=== PATIENT | female | born 1945 | race African-American/Black ===

== ENCOUNTER 2017-01-02 00:29 | Inpatient (IN) | payer MEDICARE, OTHER ==
[~2017-01-02] VITALS: Ht 167.6 cm; Wt 63.5 kg
[2017-01-02] VITALS (7 sets, daily range): BP systolic 103–145; BP diastolic 72–91
--- NOTE | 2017-01-02 00:28 | Emergency Room Report ---
History of Present Illness General Source: Patient, EMS Present Illness HPI Patient 71-year-old female brought in by EMS after increased abdominal pain. Patient had associated vomiting. Patient prior history of chronic back pain. Patient had previously been seen at this emergency department after having similar symptoms were. Patient stated that she been drinking beer earlier in the day. She had increased abdominal pain subsequently. She reports having some chest pain. She reports having some associated shortness of breathPatient stated that she had vomited one time. She denied prior medical history Allergies: Coded Allergies: No Known Allergies (Unverified , 05/25/14) Patient History Past Medical History: see triage record Reviewed Nursing Documentation: PMH: Agreed, PSxH: Agreed Review of Systems All Other Systems: negative except mentioned in HPI Physical Exam Sp02 EP Interpretation: reviewed, normal General Appearance: normal inspection, alert, GCS 15, mild distress Head: atraumatic ENT: normal ENT inspection, hearing grossly normal, normal voice Neck: normal inspection, full range of motion, supple, no bony tend Respiratory: normal inspection, lungs clear, normal breath sounds, no respiratory distress, no retraction, no wheezing Cardiovascular #1: regular rate, rhythm, no edema Gastrointestinal: normal inspection, soft, no guarding, no hernia, tenderness - left upper quadrant tenderness Genitourinary: no CVA tenderness Musculoskeletal: normal inspection, back normal, normal range of motion Neurologic: normal inspection, alert, oriented x3, responsive, vehicle monitor technician III-XII nml as tested, speech normal Psychiatric: normal inspection, judgement/insight normal, mood/affect normal Skin: normal inspection, normal color, no rash Medical Decision Making Diagnostic Impression: Primary Impression: Abdominal pain Additional Impressions: Pneumonia Substance abuse Tachycardia ER Course Patient presented for abdominal pain. Differential diagnoses included ischemic bowel, appendicitis, perforated viscus, abdominal aortic aneurysm, inferior myocardial infarction, viral gastroenteritis Because of complexity of patient's case laboratory testing and imaging studies were ordered.EKG interpreted by me showed sinus tachycardia with a rate of 108. There were no acute ST or T wave changes noted. Laboratory testing was notable for elevated white blood count. A CT imaging of the abdomen pelvis was ordered due to patient's severe pain and nature symptoms. A CT of abdomen and pelvis read by radiologist showed diverticulosis without diverticulitis. There is a hernia present. There is no to bowel obstruction. Left lower lobe consolidation was noted. Patient was noted to have pain and was initially given IV morphine. The patient was also given azithromycin and as well as Rocephin. Chest x-ray one view interpreted by me showed left lung infiltrate and possible effusion. the patient will be admitted for further IV antibiotics. Patient was noted to have urine tox screen positive for cocaine.Dr. Aakash Ramirez was contacted for inpatient management. Labs Test 01/02/17 00:40 01/02/17 00:45 White Blood Count 17.7 K/UL (4.8-10.8) Red Blood Count 4.46 M/UL (4.20-5.40) Hemoglobin 15.1 G/DL (12.0-16.0) Hematocrit 44.4 % (37.0-47.0) Mean Corpuscular Volume 100 FL (80-99) Mean Corpuscular Hemoglobin 33.8 PG (27.0-31.0) Mean Corpuscular Hemoglobin Concent 34.0 G/DL (32.0-36.0) Red Cell Distribution Width 11.4 % (11.6-14.8) Platelet Count 286 K/UL (150-450) Mean Platelet Volume 5.9 FL (6.5-10.1) Neutrophils (%) (Auto) 79.7 % (45.0-75.0) Lymphocytes (%) (Auto) 10.4 % (20.0-45.0) Monocytes (%) (Auto) 9.1 % (1.0-10.0) Eosinophils (%) (Auto) 0.0 % (0.0-3.0) Basophils (%) (Auto) 0.8 % (0.0-2.0) Status: unchanged Disposition: ADMITTED INPATIENT Condition: Alex Adorno Jan 02, 2017 00:28
[~2017-01-02 00:29] MED LIST: NKM; NORCO 10/3251 EA ORAL; NORCO 5-325 TA1 EACH ORAL; SOMA350 MG PO
[2017-01-02] MEDS ORDERED: Mylanta II UD 30ml ORAL ONE (00:45)
[2017-01-02] MEDS ORDERED: Lidocaine 2% Visc 15ml soln ORAL ONE (00:45)
[2017-01-02] MEDS ORDERED: Morphine Sulfate 4mg/ml Inj IVP ONE ×2 (00:45→03:15)
[2017-01-02] MEDS ORDERED: Metoclopramide 10mg/2ml Inj IVP ONE (00:45)
[2017-01-02] MEDS ORDERED: Dicyclomine HCl 10mg/5ml oral soln ORAL ONE (00:45)
[2017-01-02] MEDS ORDERED: Tubing IV Cassette IV ONE (00:46)
[2017-01-02 01:00] LABS: BASOPHILS % (AUTO) 0.8 % (0.0-2.0); LYMPHOCYTES % (AUTO) 10.4 % (20.0-45.0); MEAN CORPUSCULAR HEMOGLOBIN 33.8 PG (27.0-31.0); MEAN CORPUSCULAR VOLUME 100 FL (80-99); MEAN PLATELET VOLUME 5.9 FL (6.5-10.1); MONOCYTES % (AUTO) 9.1 % (1.0-10.0); NEUTROPHILS % (AUTO) 79.7 % (45.0-75.0); PLATELET COUNT 286 K/UL (150-450); RED BLOOD COUNT 4.46 M/UL (4.20-5.40); RED CELL DISTRIBUTION WIDTH 11.4 % (11.6-14.8); WHITE BLOOD COUNT 17.7 K/UL (4.8-10.8)
[2017-01-02 01:10] LABS: PROTHROMBIN TIME 10.4 SEC (9.30-11.50)
[2017-01-02] MEDS ORDERED: NKM (01:33)
[2017-01-02 01:52] LABS: ALBUMIN/GLOBULIN RATIO 1.1 (1.0-2.7); CALCIUM 9.5 mg/dL (8.6-10.2); CREATININE 1.4 mg/dL (0.5-0.9); GLOMERULAR FILTRATION RATE 45.1 mL/min (>60); POTASSIUM 3.7 mEQ/L (3.4-4.9); TOTAL PROTEIN 8.4 g/dL (6.6-8.7)
[2017-01-02 01:55] LABS: TROPONIN I < 0.30 ng/mL (<=0.30)
[2017-01-02] MEDS ORDERED: cefTRIAXone 1 GM in NS 55 ML IVPB ONE (03:15)
[2017-01-02] MEDS ORDERED: Azithromycin 500 MG in D5W 275 ML IVPB ONE (03:45)
[2017-01-02] MEDS ORDERED: Azithromycin 500mg Inj IV ONE (04:09)
[2017-01-02] MEDS ORDERED: LORazepam Inj 2mg/ml 1ml IV ONE (04:15)
[2017-01-02] MEDS ORDERED: Zolpidem 5mg tab ORAL PRN (07:15)
[2017-01-02] MEDS ORDERED: Vancomycin 1250mg/D5W 250ml IVPB ONE (08:30)
[2017-01-02 08:50] LABS: BASOPHILS % (AUTO) 0.5 % (0.0-2.0); LYMPHOCYTES % (AUTO) 7.5 % (20.0-45.0); MEAN CORPUSCULAR HEMOGLOBIN 33.6 PG (27.0-31.0); MEAN CORPUSCULAR HGB CONC 33.3 G/DL (32.0-36.0); MEAN CORPUSCULAR VOLUME 101 FL (80-99); MEAN PLATELET VOLUME 6.2 FL (6.5-10.1); MONOCYTES % (AUTO) 9.9 % (1.0-10.0); PLATELET COUNT 266 K/UL (150-450); RED BLOOD COUNT 3.95 M/UL (4.20-5.40); RED CELL DISTRIBUTION WIDTH 11.5 % (11.6-14.8); WHITE BLOOD COUNT 15.2 K/UL (4.8-10.8)
[2017-01-02] MEDS ORDERED: Tubing IV Secondary IV ONE (08:57)
[2017-01-02] MEDS ORDERED: NS 275ml ONE (08:57)
[2017-01-02] MEDS ORDERED: Norco 10mg/325mg tab ORAL PRN (09:00)
[2017-01-02 09:08] LABS: CALCIUM 9.4 mg/dL (8.6-10.2); CREATININE 1.2 mg/dL (0.5-0.9); GLOMERULAR FILTRATION RATE 53.8 mL/min (>60); POTASSIUM 4.3 mEQ/L (3.4-4.9)
[2017-01-02] MEDS: Heparin 5000 units/ml inj SUBQ SCH ×2 (09:28→18:54)
[2017-01-02] MEDS: DuoNeb 0.5-3(2.5)mg/3ml neb HHN SCH ×3 (10:46→19:59)
--- NOTE | 2017-01-02 11:33 | Diagnostic Imaging Report ---
Indication: ABD PAIN Technique: CT scan of the abdomen and pelvis was performed from the diaphragms to the symphysis pubis with intravenous contrast material only per specific request of the ordering physician.. 5 mm sections were generated. Axial, coronal, and sagittal images are presented. Dose: Total Dose Length Product - DLP [address] Dose Index - CTDIvol(s) 25.90 mGy. Comparison: None Findings: Lack of oral contrast and her limits evaluation. Airspace disease is noted in both lung bases. The liver is diffusely low density. No focal abnormalities are noted in the liver. The gallbladder is unremarkable. The spleen is normal. The pancreas is unremarkable. Air-fluid levels are noted in the small bowel but these are normal caliber. The appendix is normal. The uterus is unremarkable. The bladder is normal. Few diverticula are noted in the sigmoid colon. Adrenal glands are normal. There is a tiny low-density lesion in the lower pole left kidney consistent with is less than 1 cm cyst. The kidneys are otherwise unremarkable. Retroperitoneum is free of adenopathy. Aorta is unremarkable. Inferior vena cava is relatively collapsed. There is a tiny fat-containing umbilical hernia. Impression: Normal appendix. Fatty liver. Bilateral posterior airspace disease in the lungs. This is consistent with pneumonia and/or atelectasis. Air-fluid levels in the small bowel, nonspecific. Loops are not dilated. Enteritis is a possibility and should be correlated clinically. Tiny fat-containing umbilical hernia. The above report is concordant with preliminary reading by [employer] . The CT scanner at [facility] is accredited by the [employer] and the scans are performed using protocols designed to limit radiation exposure to as low as reasonably achievable to attain images of sufficient resolution adequate for diagnostic evaluation.
[2017-01-02] MEDS ORDERED: Morphine Sulfate 2mg/ml Inj IVP PRN (15:00)
[2017-01-02] MEDS ORDERED: Morphine Sulfate 4mg/ml Inj IVP PRN (15:00)
[2017-01-02] MEDS: Morphine Sulfate 10mg/ml Inj IVP PRN ×3 (15:20→22:43)
[2017-01-02] MEDS: cefTRIAXone 1gm/D5W 55ml IVPB SCH ×2 (22:43)
[2017-01-03] MEDS: DuoNeb 0.5-3(2.5)mg/3ml neb HHN SCH ×7 (00:09→23:42)
[2017-01-03 00:31] VITALS: BP 122/82
[2017-01-03] MEDS ORDERED: HydrALAZINE 10mg Tab ORAL PRN (02:00)
--- NOTE | 2017-01-03 03:45 | Consultation ---
DATE OF CONSULTATION: 01/03/2017 CARDIOLOGY CONSULTATION REQUESTING PHYSICIAN: Aakash Ramirez M.D. REASON FOR CONSULTATION: Bradycardia and uncontrolled blood pressure in the setting of abdominal pain. HISTORY OF PRESENT ILLNESS: This is a 71-year-old female who presented to the emergency room complaining of abdominal pain. Diagnostic workup in the emergency room revealed pneumonia by CAT scan evaluation. The patient was noted to have an elevated blood pressure on presentation of 170/100. Further upon admission to the cardiac observation unit, she had heart rates in the 40s. I have been asked to assist with further cardiovascular care. The patient has not complained of nausea, vomiting, dizziness, loss of consciousness, chest pain, or shortness of breath. PAST MEDICAL HISTORY: Includes hypertension, degenerative disk disease, and sciatica. FAMILY HISTORY: Noncontributory. SOCIAL HISTORY: She denies smoking or alcohol use at this time. She lives with her daughter. She is retired. ALLERGIES: None known. REVIEW OF SYSTEMS: No fevers or chills. No cough. No leg swelling. No history of seizures. No history of myocardial infarction. No history of irregular heartbeat. No history of kidney disease. No history of melena, bright red blood per rectum, or change in bowel habits. She does have abdominal pain. She has a history of diverticulosis and hernia. PHYSICAL EXAMINATION: VITAL SIGNS: Blood pressure in the emergency room was 170/70, heart rate 65, and respiratory rate 18. NECK: Supple. LUNGS: Clear. CARDIAC: Regular. Normal S1 and S2. ABDOMEN: Soft. There is no focal tenderness, guarding, or rebound. EXTREMITIES: Without edema. LABORATORY DATA: Urine toxicology screen is positive for cocaine. White count 17.7 and hemoglobin 15.1. Sodium is 136, potassium 3.7, bicarbonate 21, BUN 12, and creatinine 1.4. Troponin negative. Albumin is 4.4. IMPRESSION: 1. Hypertensive urgency. 2. Bradyarrhythmia likely precipitated by underlying sinus node disease exacerbated by increased vagal tone due to abdominal pain. 3. Pneumonia. 4. Cocaine intoxication and abuse likely exacerbating blood pressure control. 5. Acute tubular necrosis with acute on chronic kidney injury. 6. Abdominal pain possibly due to ischemic changes associated with cocaine use. PLAN: 1. Cardiac monitoring. 2. Hydration. 3. Anti-platelet therapy. 4. Titration of antihypertensives. 5. Avoid calcium and beta blockers. 6. Counseling regarding substance abuse. 7. The patient was made aware of the increased risk of sudden cardiac with use of cocaine especially in the setting of atherosclerosis and hypertension. Israel Quijano M.D. DR: ROM JOB#: [id number] CC:
[2017-01-03 04:46] VITALS: BP 109/74
[2017-01-03 08:00] VITALS: BP 110/74
[2017-01-03 08:24] LABS: ALANINE AMINOTRANSFERASE 11 U/L (3-33); ALBUMIN/GLOBULIN RATIO 1.1 (1.0-2.7); ANION GAP 7 (5-15); ASPARTATE AMINO TRANSFERASE 11 U/L (5-40); CALCIUM 8.7 mg/dL (8.6-10.2); CARBON DIOXIDE 30 mEQ/L (20-30); CHLORIDE 101 mEQ/L (98-107); GLOMERULAR FILTRATION RATE > 60 mL/min (>60); HEMOLYSIS 0; POTASSIUM 4.3 mEQ/L (3.4-4.9); SODIUM 138 mEQ/L (135-145); TOTAL PROTEIN 6.4 g/dL (6.6-8.7)
[2017-01-03] MEDS: Vancomycin 1gm/D5W 275ml IVPB SCH ×2 (08:36)
[2017-01-03] MEDS: Aspirin Baby 81mg ORAL SCH (08:36)
--- NOTE | 2017-01-03 08:36 | Pulmonology Progress Note ---
Assessment/Plan Assessment/Plan IMPRESSION: 1. Pneumonia, community acquired 2. abdominal pain 3. Hypertension 4. Chronic pain 5. Bradycardia PLAN care noted IV antibiotics respiratory care resume home meds supportive care monitor imaging for clearing GI followup cardiology for reduced heart rate impression, plan, and exam edited and reviewed in detail care discussed with RN Subjective Allergies: Coded Allergies: No Known Allergies (Unverified , 05/25/14) Subjective overall improved care noted and reviewed reduced abdominal pain Objective Last 24 Hour Vital Signs Date Time Temp Pulse Resp B/P (MAP) Pulse Ox O2 Delivery O2 Flow Rate FiO2 01/03/17 07:31 Nasal Cannula 2.0 28 01/03/17 07:31 72 16 99 Nasal Cannula 2.0 28 01/03/17 07:31 98 Nasal Cannula 2.0 28 01/03/17 07:26 69 16 96 Nasal Cannula 2.0 28 01/03/17 04:46 96.7 66 20 109/74 Room Air 01/03/17 03:39 60 01/03/17 03:30 Nasal Cannula 2.0 28 01/03/17 03:30 Nasal Cannula 2.0 28 01/03/17 00:31 96.1 63 20 122/82 Room Air 01/02/17 23:50 59 01/02/17 23:30 68 16 98 Nasal Cannula 2.0 28 01/02/17 23:30 64 16 97 Nasal Cannula 2.0 28 01/02/17 20:06 65 01/02/17 20:03 98 Nasal Cannula 2.0 28 01/02/17 20:03 Nasal Cannula 2.0 28 01/02/17 20:01 62 16 99 Nasal Cannula 2.0 28 01/02/17 20:00 96.1 72 20 145/91 95 Room Air 01/02/17 20:00 60 16 97 Nasal Cannula 2.0 28 01/02/17 19:59 60 16 Nasal Cannula 2.0 28 01/02/17 16:02 97.3 70 18 107/73 98 Nasal Cannula 2.0 01/02/17 16:00 63 01/02/17 15:09 63 16 99 Nasal Cannula 2.0 01/02/17 15:06 60 15 98 Nasal Cannula 2.0 01/02/17 12:05 97.2 70 18 105/72 97 Nasal Cannula 2.0 01/02/17 12:00 64 01/02/17 10:56 Nasal Cannula 2.0 01/02/17 10:56 70 17 97 Nasal Cannula 2.0 Objective WDWN NAD clearer breath sounds bilaterally without rhonchi or wheeze [id number] without MRG NABS no HSM; reduced tenderness no CCE nonfocal Microbiology Date/Time Source Procedure Growth Status 01/02/17 04:05 Blood Blood Culture - Preliminary NO GROWTH AFTER 24 HOURS Resulted 01/02/17 03:50 Blood Blood Culture - Preliminary NO GROWTH AFTER 24 HOURS Resulted Laboratory Tests 01/03/17 07:00: Sodium Level 138, Potassium Level 4.3, Chloride Level 101, Carbon Dioxide Level 30, Anion Gap 7, Blood Urea Nitrogen 12, Creatinine 1.0H, Estimat Glomerular Filtration Rate > 60, Glucose Level 116H, Calcium Level 8.7, Total Bilirubin 0.2 , Aspartate Amino Transf (AST/SGOT) 11, Alanine Aminotransferase (ALT/SGPT) 11, Alkaline Phosphatase 55, Troponin I [Pending], Pro-B-Type Natriuretic Peptide 104, Total Protein 6.4L, Albumin 3.4L, Globulin 3.0, Albumin/Globulin Ratio 1.1 , Thyroid Stimulating Hormone (TSH) 4.600H Current Medications Medications (Trade) Dose Ordered Sig/Ryan Route PRN Reason Start Time Stop Time Status Last Admin Dose Admin Acetaminophen (Tylenol) 650 mg Q4H PRN ORAL Prn Headache/Temp > 101 01/02/17 16:00 02/01/17 15:59 Al Hydroxide/Mg Hydroxide (Mylanta) 30 ml FOUR TIMES A DAY ORAL 01/02/17 09:00 02/01/17 08:59 01/02/17 21:31 Albuterol/ Ipratropium (DuoNeb 0.5-3(2.5)mg/3ml) 3 ml Q4HRT HHN 01/02/17 11:00 01/07/17 10:59 01/03/17 07:56 Aspirin (ASA) 81 mg DAILY ORAL 01/03/17 09:00 02/02/17 08:59 Ceftriaxone Sodium 1 gm/ Dextrose 55 ml @ 110 mls/hr Q24H IVPB 01/02/17 23:00 01/09/17 22:59 01/02/17 22:43 Dextrose (Dextrose 50%) STAT PRN IV Hypoglycemia 01/02/17 07:15 02/01/17 07:14 Heparin Sodium (Porcine) (Heparin 5000 units/ml) 5,000 units BID SUBQ 01/02/17 09:00 02/01/17 08:59 01/02/17 18:54 Hydralazine HCl (Apresoline) 10 mg Q6H PRN ORAL SBP above 150 01/03/17 02:00 02/02/17 01:59 Morphine Sulfate (Morphine Sulfate) 2 mg Q3H PRN IVP Mild Pain (Pain Scale 1-3) 01/02/17 15:00 01/09/17 14:59 Morphine Sulfate (Morphine Sulfate) 4 mg Q3H PRN IVP Moderate Pain (Pain Scale 4-6) 01/02/17 15:00 01/09/17 14:59 Morphine Sulfate (Morphine Sulfate) 6 mg Q3H PRN IVP Severe Pain (Pain Scale 7-10) 01/02/17 15:00 01/09/17 14:59 01/02/17 22:43 Ondansetron HCl (Zofran) 4 mg Q6H PRN IVP Nausea & Vomiting 01/02/17 15:00 02/01/17 14:59 Sodium Chloride 1,000 ml @ 100 mls/hr Q10H IV 01/02/17 15:00 02/01/17 14:59 01/03/17 01:09 Vancomycin HCl (Vanco rx to dose) 1 ea DAILY PRN MISC Per rx protocol 01/02/17 07:15 02/01/17 07:14 Vancomycin HCl 1 gm/Dextrose 275 ml @ 183.708 mls/hr Q24H IVPB 01/03/17 08:00 01/08/17 07:59 Zolpidem Tartrate (Ambien) 10 mg HSPRN PRN ORAL Insomnia 01/02/17 07:15 01/09/17 07:14 THERESA MENENDEZ Jan 03, 2017 08:36
[2017-01-03] MEDS: Heparin 5000 units/ml inj SUBQ SCH ×2 (08:38→17:21)
[2017-01-03 08:43] LABS: TROPONIN I < 0.30 ng/mL (<=0.30)
[2017-01-03] MEDS: Morphine Sulfate 10mg/ml Inj IVP PRN ×3 (08:51→21:09)
--- NOTE | 2017-01-03 08:55 | Diagnostic Imaging Report ---
Indication: SOB Technique: XRAY CHEST 1 V Comparison:None Findings: There is airspace disease in the left lung base with air bronchograms. Blunting of the left costophrenic angle is noted. The heart is normal in size. Right lung is clear. Patient has taken a poor inspiration. The bones are unremarkable. Impression: Left lower lobe airspace disease consistent with pneumonia or volume loss. Left pleural effusion.
[2017-01-03] MEDS ORDERED: Tubing IV Secondary IV ONE (09:05)
--- NOTE | 2017-01-03 11:59 | General Progress Note ---
Assessment/Plan Assessment/Plan GI CONSULT Dictated Assessment ATSP for LUQ vs Chest wall pain On exam, pain appears to be in (L) lower chest wall Patient participates in full contact boxing 3 times a week Will check bone scan Declines EGD and declines screening colonoscopy Thank you Veena Turpin MD Subjective Allergies: Coded Allergies: No Known Allergies (Unverified , 05/25/14) Objective Last 24 Hour Vital Signs Date Time Temp Pulse Resp B/P (MAP) Pulse Ox O2 Delivery O2 Flow Rate FiO2 01/03/17 11:01 66 16 99 Nasal Cannula 2.0 28 01/03/17 10:55 63 16 98 Nasal Cannula 2.0 28 01/03/17 08:00 72 01/03/17 08:00 98.1 77 18 110/74 100 Room Air 01/03/17 07:31 Nasal Cannula 2.0 28 01/03/17 07:31 72 16 99 Nasal Cannula 2.0 28 01/03/17 07:31 98 Nasal Cannula 2.0 28 01/03/17 07:26 69 16 96 Nasal Cannula 2.0 28 01/03/17 04:46 96.7 66 20 109/74 Room Air 01/03/17 03:39 60 01/03/17 03:30 Nasal Cannula 2.0 28 01/03/17 03:30 Nasal Cannula 2.0 28 01/03/17 00:31 96.1 63 20 122/82 Room Air 01/02/17 23:50 59 01/02/17 23:30 68 16 98 Nasal Cannula 2.0 28 01/02/17 23:30 64 16 97 Nasal Cannula 2.0 28 01/02/17 20:06 65 01/02/17 20:03 98 Nasal Cannula 2.0 28 01/02/17 20:03 Nasal Cannula 2.0 28 01/02/17 20:01 62 16 99 Nasal Cannula 2.0 28 01/02/17 20:00 96.1 72 20 145/91 95 Room Air 01/02/17 20:00 60 16 97 Nasal Cannula 2.0 28 01/02/17 19:59 60 16 Nasal Cannula 2.0 28 01/02/17 16:02 97.3 70 18 107/73 98 Nasal Cannula 2.0 01/02/17 16:00 63 01/02/17 15:09 63 16 99 Nasal Cannula 2.0 01/02/17 15:06 60 15 98 Nasal Cannula 2.0 01/02/17 12:05 97.2 70 18 105/72 97 Nasal Cannula 2.0 01/02/17 12:00 64 Laboratory Tests 01/03/17 07:00: Sodium Level 138, Potassium Level 4.3, Chloride Level 101, Carbon Dioxide Level 30, Anion Gap 7, Blood Urea Nitrogen 12, Creatinine 1.0H, Estimat Glomerular Filtration Rate > 60, Glucose Level 116H, Calcium Level 8.7, Total Bilirubin 0.2 , Aspartate Amino Transf (AST/SGOT) 11, Alanine Aminotransferase (ALT/SGPT) 11, Alkaline Phosphatase 55, Troponin I < 0.30, Pro-B-Type Natriuretic Peptide 104, Total Protein 6.4L, Albumin 3.4L, Globulin 3.0, Albumin/Globulin Ratio 1.1, Thyroid Stimulating Hormone (TSH) 4.600H Height (Feet): 5 Height (Inches): 6.00 Weight (Pounds): 140 VEENA TURPIN Jan 03, 2017 11:59
[2017-01-03 12:00] VITALS: BP 125/78
[2017-01-03 16:00] VITALS: BP 144/84
--- NOTE | 2017-01-03 16:30 | Diagnostic Imaging Report ---
Indication: PAIN Technique: IV administration of 23.8 mCi 9M technetium MDP. Flow, blood pool, and static images were obtained Comparison: Chest radiograph dated 01/02/2017 Findings: Flow images demonstrate normal activity within the heart, lungs, and soft tissues as well as within the abdominal aorta. No abnormal uptake is seen on the blood pool images. Static images demonstrate normal skeletal uptake, without a focal areas of increased or decreased uptake. Impression: Negative. No findings to suggest etiology of stated clinical history of left-sided rib pain.
--- NOTE | 2017-01-03 18:36 | Cardiology Report ---
APPROVED REPORT EKG Measurement Heart [id number] CA [id number] [id number] Sinus tachycardia Septal infarct, age undetermined Abnormal ECG
[2017-01-03 20:22] VITALS: BP 146/90
[2017-01-03] MEDS: cefTRIAXone 1gm/D5W 55ml IVPB SCH ×2 (23:25)
[2017-01-04 00:06] VITALS: BP 135/86
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
[2017-01-04] MEDS: Morphine Sulfate 10mg/ml Inj IVP PRN ×3 (03:54→21:07)
[2017-01-04 04:04] VITALS: BP 142/97
[2017-01-04] MEDS: DuoNeb 0.5-3(2.5)mg/3ml neb HHN SCH ×5 (04:29→20:22)
[2017-01-04 08:30] VITALS: BP 159/85
--- NOTE | 2017-01-04 08:33 | Pulmonology Progress Note ---
Assessment/Plan Assessment/Plan IMPRESSION: 1. Pneumonia, community acquired 2. abdominal pain 3. Hypertension 4. Chronic pain 5. Bradycardia PLAN care noted IV antibiotics- check cxr respiratory care noted home meds pain control supportive care monitor imaging for clearing GI followup appreciated cardiology for reduced heart rate PT dc planning impression, plan, and exam edited and reviewed in detail care discussed with RN Subjective Allergies: Coded Allergies: No Known Allergies (Unverified , 05/25/14) Subjective overall improved care noted and reviewed reduced abdominal pain per gi, likely rib pain Objective Last 24 Hour Vital Signs Date Time Temp Pulse Resp B/P (MAP) Pulse Ox O2 Delivery O2 Flow Rate FiO2 01/04/17 08:30 97.0 60 18 159/85 99 Nasal Cannula 2.0 01/04/17 07:34 97 Nasal Cannula 2.0 01/04/17 07:34 Nasal Cannula 2.0 01/04/17 07:33 65 18 97 Nasal Cannula 2.0 01/04/17 04:04 98.0 60 20 142/97 95 Nasal Cannula 2.0 01/04/17 03:56 60 01/04/17 03:45 60 16 98 Nasal Cannula 2.0 28 01/04/17 03:30 58 16 97 Nasal Cannula 2.0 28 01/04/17 00:06 98.1 79 20 135/86 98 Nasal Cannula 2.0 01/03/17 23:50 85 01/03/17 23:43 61 16 97 Nasal Cannula 2.0 28 01/03/17 23:30 57 16 96 Nasal Cannula 2.0 28 01/03/17 20:22 97.0 62 20 146/90 94 Nasal Cannula 2.0 01/03/17 19:55 64 01/03/17 19:30 61 16 97 Nasal Cannula 2.0 28 01/03/17 19:30 96 Nasal Cannula 2.0 28 01/03/17 19:30 64 16 98 Nasal Cannula 2.0 28 01/03/17 19:30 Nasal Cannula 2.0 28 01/03/17 16:00 97.2 70 18 144/84 93 Nasal Cannula 2.0 01/03/17 16:00 68 01/03/17 15:05 62 16 99 Nasal Cannula 2.0 28 01/03/17 15:00 60 16 98 Nasal Cannula 2.0 28 01/03/17 12:00 97.2 73 20 125/78 97 Nasal Cannula 2.0 01/03/17 12:00 68 01/03/17 11:01 66 16 99 Nasal Cannula 2.0 28 01/03/17 10:55 63 16 98 Nasal Cannula 2.0 28 Objective WDWN NAD clearer breath sounds bilaterally without rhonchi or wheeze [id number] without MRG NABS no HSM; minimal tenderness no CCE nonfocal Microbiology Date/Time Source Procedure Growth Status 01/02/17 04:05 Blood Blood Culture - Preliminary NO GROWTH AFTER 48 HOURS Resulted 01/02/17 03:50 Blood Blood Culture - Preliminary NO GROWTH AFTER 48 HOURS Resulted Current Medications Medications (Trade) Dose Ordered Sig/Ryan Route PRN Reason Start Time Stop Time Status Last Admin Dose Admin Acetaminophen (Tylenol) 650 mg Q4H PRN ORAL Prn Headache/Temp > 101 01/02/17 16:00 02/01/17 15:59 Al Hydroxide/Mg Hydroxide (Mylanta) 30 ml FOUR TIMES A DAY ORAL 01/02/17 09:00 02/01/17 08:59 01/03/17 21:08 Albuterol/ Ipratropium (DuoNeb 0.5-3(2.5)mg/3ml) 3 ml Q4HRT HHN 01/02/17 11:00 01/07/17 10:59 01/04/17 07:32 Aspirin (ASA) 81 mg DAILY ORAL 01/03/17 09:00 02/02/17 08:59 01/03/17 08:36 Ceftriaxone Sodium 1 gm/ Dextrose 55 ml @ 110 mls/hr Q24H IVPB 01/02/17 23:00 01/09/17 22:59 01/03/17 23:25 Dextrose (Dextrose 50%) STAT PRN IV Hypoglycemia 01/02/17 07:15 02/01/17 07:14 Heparin Sodium (Porcine) (Heparin 5000 units/ml) 5,000 units BID SUBQ 01/02/17 09:00 02/01/17 08:59 01/03/17 17:21 Hydralazine HCl (Apresoline) 10 mg Q6H PRN ORAL SBP above 150 01/03/17 02:00 02/02/17 01:59 Morphine Sulfate (Morphine Sulfate) 2 mg Q3H PRN IVP Mild Pain (Pain Scale 1-3) 01/02/17 15:00 01/09/17 14:59 Morphine Sulfate (Morphine Sulfate) 4 mg Q3H PRN IVP Moderate Pain (Pain Scale 4-6) 01/02/17 15:00 01/09/17 14:59 Morphine Sulfate (Morphine Sulfate) 6 mg Q3H PRN IVP Severe Pain (Pain Scale 7-10) 01/02/17 15:00 01/09/17 14:59 01/04/17 03:54 Ondansetron HCl (Zofran) 4 mg Q6H PRN IVP Nausea & Vomiting 01/02/17 15:00 02/01/17 14:59 Sodium Chloride 1,000 ml @ 100 mls/hr Q10H IV 01/02/17 15:00 02/01/17 14:59 01/04/17 01:00 Vancomycin HCl (Vanco rx to dose) 1 ea DAILY PRN MISC Per rx protocol 01/02/17 07:15 02/01/17 07:14 Vancomycin HCl 1 gm/Dextrose 275 ml @ 183.708 mls/hr Q24H IVPB 01/03/17 08:00 01/08/17 07:59 01/03/17 08:36 Zolpidem Tartrate (Ambien) 10 mg HSPRN PRN ORAL Insomnia 01/02/17 07:15 01/09/17 07:14 THERESA MENENDEZ Jan 04, 2017 08:33
[2017-01-04] MEDS: Aspirin Baby 81mg ORAL SCH (09:17)
[2017-01-04] MEDS: Vancomycin 1gm/D5W 275ml IVPB SCH ×2 (09:17)
[2017-01-04] MEDS: Heparin 5000 units/ml inj SUBQ SCH ×2 (09:27→18:00)
[2017-01-04 10:23] LABS: BASOPHILS % (AUTO) 1.5 % (0.0-2.0); LYMPHOCYTES % (AUTO) 20.1 % (20.0-45.0); MEAN CORPUSCULAR HEMOGLOBIN 34.7 PG (27.0-31.0); MEAN CORPUSCULAR HGB CONC 33.8 G/DL (32.0-36.0); MEAN CORPUSCULAR VOLUME 103 FL (80-99); MEAN PLATELET VOLUME 5.9 FL (6.5-10.1); MONOCYTES % (AUTO) 10.4 % (1.0-10.0); PLATELET COUNT 251 K/UL (150-450); RED CELL DISTRIBUTION WIDTH 11.5 % (11.6-14.8); WHITE BLOOD COUNT 4.3 K/UL (4.8-10.8)
[2017-01-04 12:03] VITALS: BP 142/77
--- NOTE | 2017-01-04 12:35 | Diagnostic Imaging Report ---
Indication: Dyspnea Comparison: 01/02/17 2 views of the chest obtained. Left basilar infiltrate versus atelectasis demonstrated. Probable infiltrate or atelectasis at the right lung base as well. Lung volumes remain low bilaterally. Heart size is borderline. Small bilateral pleural effusions are probably present as well. Impression: Basilar infiltrates versus atelectasis. Small pleural effusions are also suspected
[2017-01-04] MEDS ORDERED: Zolpidem 5mg tab ORAL PRN (15:45)
[2017-01-04 16:39] VITALS: BP 140/89
[2017-01-04 20:00] VITALS: BP 148/95
--- NOTE | 2017-01-04 20:32 | General Progress Note ---
Assessment/Plan Assessment/Plan Assessment - L costal margin pain with negative radiology w/u - cocaine use - HTN - PNA Recommendations - f/u symptoms and exam - pain control - patient declined EGD/Colon Subjective Allergies: Coded Allergies: No Known Allergies (Unverified , 05/25/14) Subjective Feels OK no new complaints Bone scan negative yesterday Objective Last 24 Hour Vital Signs Date Time Temp Pulse Resp B/P (MAP) Pulse Ox O2 Delivery O2 Flow Rate FiO2 01/04/17 20:00 97.9 63 16 148/95 94 Nasal Cannula 2.0 28 01/04/17 19:45 78 16 98 Nasal Cannula 2.0 28 01/04/17 19:30 Nasal Cannula 2.0 28 01/04/17 19:30 96 Nasal Cannula 2.0 28 01/04/17 19:30 70 16 97 Nasal Cannula 2.0 28 01/04/17 16:39 97.2 73 18 140/89 100 Nasal Cannula 2.0 01/04/17 16:00 71 01/04/17 15:00 79 20 98 Nasal Cannula 2.0 01/04/17 14:53 80 20 98 Nasal Cannula 2.0 01/04/17 12:03 97.0 79 18 142/77 95 Nasal Cannula 2.0 01/04/17 12:00 75 01/04/17 10:58 74 18 97 Nasal Cannula 2.0 01/04/17 10:52 73 18 97 Nasal Cannula 2.0 01/04/17 08:30 97.0 60 18 159/85 99 Nasal Cannula 2.0 01/04/17 08:00 67 01/04/17 07:43 64 18 98 Nasal Cannula 2.0 01/04/17 07:34 97 Nasal Cannula 2.0 01/04/17 07:34 Nasal Cannula 2.0 01/04/17 07:33 65 18 97 Nasal Cannula 2.0 01/04/17 04:04 98.0 60 20 142/97 95 Nasal Cannula 2.0 01/04/17 03:56 60 01/04/17 03:45 60 16 98 Nasal Cannula 2.0 28 01/04/17 03:30 58 16 97 Nasal Cannula 2.0 01/04/17 00:06 98.1 79 20 135/86 98 Nasal Cannula 2.0 01/03/17 23:50 85 01/03/17 23:43 61 16 97 Nasal Cannula 2.0 28 01/03/17 23:30 57 16 96 Nasal Cannula 2.0 28 Intake and Output 01/04/17 01/05/17 19:00 07:00 Intake Total 635 ml Balance 635 ml Intake Oral 360 ml IV Total 275 ml # Voids 3 # Bowel Movements 1 Laboratory Tests 01/04/17 09:50: White Blood Count 4.3L, Red Blood Count 3.30L, Hemoglobin 11.5L, Hematocrit 34.0L, Mean Corpuscular Volume 103H, Mean Corpuscular Hemoglobin 34.7H, Mean Corpuscular Hemoglobin Concent 33.8, Red Cell Distribution Width 11.5L, Platelet Count 251, Mean Platelet Volume 5.9L, Neutrophils (%) (Auto) 65.0, Lymphocytes (%) (Auto) 20.1, Monocytes (%) (Auto) 10.4H, Eosinophils (%) (Auto) 3.0, Basophils (%) (Auto) 1.5 Height (Feet): 5 Height (Inches): 6.00 Weight (Pounds): 140 Objective WDWN AA woman NCAT supple CTA RRR Soft NT ND no edema non focal AMANDA HARRINGTON Jan 04, 2017 20:32
[2017-01-04] MEDS: cefTRIAXone 1gm/D5W 55ml IVPB SCH ×2 (22:43)
[2017-01-05] VITALS (7 sets, daily range): BP systolic 138–160; BP diastolic 75–99
[2017-01-05] MEDS: DuoNeb 0.5-3(2.5)mg/3ml neb HHN SCH ×4 (00:21→11:38)
[2017-01-05] MEDS: Morphine Sulfate 10mg/ml Inj IVP PRN (05:02)
[2017-01-05] MEDS: Aspirin Baby 81mg ORAL SCH (08:49)
[2017-01-05] MEDS: Heparin 5000 units/ml inj SUBQ SCH (08:51)
--- NOTE | 2017-01-05 09:34 | History & Physical ---
History and Physical History & Physicial 9-10 HISTORY OF PRESENT ILLNESS: 71-year-old female presents to the emergency room with complaint of abdominal pain. She underwent a CT and confirmed that pneumonia and patient now admitted for antibiotics. She lives with her daughter in the same complex. The patient has had chronic pain. The patient has not had any adequate followup as far as further care and management. The patient is otherwise comfortable. She denies any recent trauma. Denies any injuries. PAST MEDICAL HISTORY: Notable for hypertension. Sciatica MEDICATIONS: Reviewed and reconciled. ALLERGIES: Reviewed. SOCIAL HISTORY: She does not smoke or drink at this time. She is retired. She is independent. She lives with her daughter. She is Full Code. REVIEW OF SYSTEMS: All 10-points reviewed with the patient are otherwise negative. PHYSICAL EXAMINATION: GENERAL: The patient is a well-developed female, comfortable. VITAL SIGNS: Blood pressure 103/71, pulse 74, respiratory rate 18, and saturation 94%, and temperature 98.2 HEENT: Normocephalic and atraumatic. Extraocular movements are grossly intact. The oropharynx is moist. NECK: Supple. Carotid 2+. No meningismus. LUNGS: scattered rhonchi but no wheezes. CARDIAC: S1 and S2. Regular rate and rhythm. Possible S4. No murmurs or rubs. ABDOMEN: Soft and nontender. No hepatosplenomegaly. no distention EXTREMITIES: No cyanosis or clubbing. No edema. NEUROLOGIC: Grossly nonfocal. The patient is alert and oriented x3. The patient has right leg pain. She has difficulty with weightbearing. LABORATORY DATA: Labs Test 01/02/17 00:45 01/02/17 01:20 01/02/17 03:05 01/02/17 08:25 White Blood Count 17.7 K/UL (4.8-10.8) 15.2 K/UL (4.8-10.8) Red Blood Count 4.46 M/UL (4.20-5.40) 3.95 M/UL (4.20-5.40) Hemoglobin 15.1 G/DL (12.0-16.0) 13.3 G/DL (12.0-16.0) Hematocrit 44.4 % (37.0-47.0) 39.8 % (37.0-47.0) Mean Corpuscular Volume 100 FL (80-99) 101 FL (80-99) Mean Corpuscular Hemoglobin 33.8 PG (27.0-31.0) 33.6 PG (27.0-31.0) Mean Corpuscular Hemoglobin Concent 34.0 G/DL (32.0-36.0) 33.3 G/DL (32.0-36.0) Red Cell Distribution Width 11.4 % (11.6-14.8) 11.5 % (11.6-14.8) Platelet Count 286 K/UL (150-450) 266 K/UL (150-450) Mean Platelet Volume 5.9 FL (6.5-10.1) 6.2 FL (6.5-10.1) Neutrophils (%) (Auto) 79.7 % (45.0-75.0) 82.0 % (45.0-75.0) Lymphocytes (%) (Auto) 10.4 % (20.0-45.0) 7.5 % (20.0-45.0) Monocytes (%) (Auto) 9.1 % (1.0-10.0) 9.9 % (1.0-10.0) Eosinophils (%) (Auto) 0.0 % (0.0-3.0) 0.0 % (0.0-3.0) Basophils (%) (Auto) 0.8 % (0.0-2.0) 0.5 % (0.0-2.0) Prothrombin Time 10.4 SEC (9.30-11.50) Prothromb Time International Ratio 1.0 (0.9-1.1) Activated Partial Thromboplast Time 34 SEC (23-33) Sodium Level 136 mEQ/L (135-145) 137 mEQ/L (135-145) Potassium Level 3.7 mEQ/L (3.4-4.9) 4.3 mEQ/L (3.4-4.9) Chloride Level 97 mEQ/L (98-107) 98 mEQ/L (98-107) Carbon Dioxide Level 21 mEQ/L (20-30) 27 mEQ/L (20-30) Anion Gap 18 (5-15) 12 (5-15) Blood Urea Nitrogen 12 mg/dL (7-23) 11 mg/dL (7-23) Creatinine 1.4 mg/dL (0.5-0.9) 1.2 mg/dL (0.5-0.9) Estimat Glomerular Filtration Rate 45.1 mL/min (>60) 53.8 mL/min (>60) Glucose Level 130 mg/dL (74-106) 142 mg/dL (74-106) Calcium Level 9.5 mg/dL (8.6-10.2) 9.4 mg/dL (8.6-10.2) Total Bilirubin 1.0 mg/dL (0.0-1.2) Aspartate Amino Transf (AST/SGOT) 15 U/L (5-40) Alanine Aminotransferase (ALT/SGPT) 15 U/L (3-33) Alkaline Phosphatase 73 U/L (35-104) Total Creatine Kinase 135 U/L (26-140) Creatine Kinase MB 2.0 ng/mL (< 3.8) Creatine Kinase MB Relative Index 1.4 Troponin I < 0.30 ng/mL (<=0.30) Pro-B-Type Natriuretic Peptide 77 pg/mL (0-125) Total Protein 8.4 g/dL (6.6-8.7) Albumin 4.4 g/dL (3.5-5.2) Globulin 4.0 g/dL Albumin/Globulin Ratio 1.1 (1.0-2.7) Lipase 13 U/L (< 60) Urine Opiates Screen Positive (NEGATIVE) Urine Barbiturates Screen Negative (NEGATIVE) Phencyclidine (PCP) Screen Negative (NEGATIVE) Urine Amphetamines Screen Negative (NEGATIVE) Urine Benzodiazepines Screen Negative (NEGATIVE) Urine Cocaine Screen Positive (NEGATIVE) Urine Marijuana (THC) Screen Negative (NEGATIVE) IMPRESSION: 1. Pneumonia, community acquired 2. abdominal pain 3. Hypertension 4. Chronic pain PLAN care noted IV antibiotics respiratory care resume home meds supportive care monitor imaging impression, plan, and exam edited and reviewed in detail care discussed with THERESA TORRES Jan 05, 2017 09:34
--- NOTE | 2017-01-05 09:36 | Pulmonology Progress Note ---
Assessment/Plan Assessment/Plan IMPRESSION: 1. Pneumonia, community acquired 2. abdominal pain 3. Hypertension 4. Chronic pain 5. Bradycardia PLAN care noted IV antibiotics- still with some atelectasis respiratory care noted home meds pain control supportive care monitor imaging for clearing GI followup appreciated cardiology for reduced heart rate PT dc planning today pending cbc d/w daughter impression, plan, and exam edited and reviewed in detail care discussed with RN Subjective Allergies: Coded Allergies: No Known Allergies (Unverified , 05/25/14) Subjective overall improved care noted and reviewed reduced abdominal pain Objective Last 24 Hour Vital Signs Date Time Temp Pulse Resp B/P (MAP) Pulse Ox O2 Delivery O2 Flow Rate FiO2 01/05/17 08:45 138/89 01/05/17 08:34 97.3 75 18 159/93 95 Nasal Cannula 2.0 01/05/17 07:59 73 16 99 Nasal Cannula 2.0 28 01/05/17 07:55 Nasal Cannula 2.0 28 01/05/17 07:49 69 16 96 Nasal Cannula 2.0 28 01/05/17 07:48 96 Nasal Cannula 2.0 28 01/05/17 04:00 64 01/05/17 04:00 97.0 65 16 157/75 98 Nasal Cannula 2.0 28 01/05/17 03:50 60 16 98 Nasal Cannula 2.0 01/05/17 03:48 56 16 97 Nasal Cannula 2.0 01/05/17 02:20 97.0 62 20 146/90 95 Room Air 01/05/17 00:00 97.0 62 20 160/99 95 Room Air 01/04/17 23:45 72 16 99 Nasal Cannula 2.0 01/04/17 23:30 71 16 98 Nasal Cannula 2.0 28 01/04/17 20:00 66 01/04/17 20:00 97.9 63 16 148/95 94 Nasal Cannula 2.0 28 01/04/17 19:45 78 16 98 Nasal Cannula 2.0 28 01/04/17 19:30 Nasal Cannula 2.0 28 01/04/17 19:30 96 Nasal Cannula 2.0 28 01/04/17 19:30 70 16 97 Nasal Cannula 2.0 28 01/04/17 16:39 97.2 73 18 140/89 100 Nasal Cannula 2.0 01/04/17 16:00 71 01/04/17 15:00 79 20 98 Nasal Cannula 2.0 01/04/17 14:53 80 20 98 Nasal Cannula 2.0 01/04/17 12:03 97.0 79 18 142/77 95 Nasal Cannula 2.0 01/04/17 12:00 75 01/04/17 10:58 74 18 97 Nasal Cannula 2.0 01/04/17 10:52 73 18 97 Nasal Cannula 2.0 Intake and Output 01/05/17 01/06/17 19:00 07:00 Intake Total 240 ml Balance 240 ml Intake Oral 240 ml # Voids 1 Objective WDWN NAD clearer breath sounds bilaterally without rhonchi or wheeze [id number] without MRG NABS no HSM; minimal tenderness no CCE nonfocal Laboratory Tests 01/04/17 09:50: White Blood Count 4.3L, Red Blood Count 3.30L, Hemoglobin 11.5L, Hematocrit 34.0L, Mean Corpuscular Volume 103H, Mean Corpuscular Hemoglobin 34.7H, Mean Corpuscular Hemoglobin Concent 33.8, Red Cell Distribution Width 11.5L, Platelet Count 251, Mean Platelet Volume 5.9L, Neutrophils (%) (Auto) 65.0, Lymphocytes (%) (Auto) 20.1, Monocytes (%) (Auto) 10.4H, Eosinophils (%) (Auto) 3.0, Basophils (%) (Auto) 1.5 01/05/17 07:10: Thyroid Stimulating Hormone (TSH) [Pending], Free Thyroxine [Pending], Triiodothyronine (T3) Uptake [Pending], Vancomycin Level Trough 6.2 Current Medications Medications (Trade) Dose Ordered Sig/Ryan Route PRN Reason Start Time Stop Time Status Last Admin Dose Admin Acetaminophen (Tylenol) 650 mg Q4H PRN ORAL Prn Headache/Temp > 101 01/02/17 16:00 02/01/17 15:59 Al Hydroxide/Mg Hydroxide (Mylanta) 30 ml FOUR TIMES A DAY ORAL 01/02/17 09:00 02/01/17 08:59 01/05/17 08:49 Albuterol/ Ipratropium (DuoNeb 0.5-3(2.5)mg/3ml) 3 ml Q4HRT HHN 01/02/17 11:00 01/07/17 10:59 01/05/17 08:06 Aspirin (ASA) 81 mg DAILY ORAL 01/03/17 09:00 02/02/17 08:59 01/05/17 08:49 Ceftriaxone Sodium 1 gm/ Dextrose 55 ml @ 110 mls/hr Q24H IVPB 01/02/17 23:00 01/09/17 22:59 01/04/17 22:43 Dextrose (Dextrose 50%) STAT PRN IV Hypoglycemia 01/02/17 07:15 02/01/17 07:14 Heparin Sodium (Porcine) (Heparin 5000 units/ml) 5,000 units BID SUBQ 01/02/17 09:00 02/01/17 08:59 01/05/17 08:51 Hydralazine HCl (Apresoline) 10 mg Q6H PRN ORAL SBP above 150 01/03/17 02:00 02/02/17 01:59 Morphine Sulfate (Morphine Sulfate) 2 mg Q3H PRN IVP Mild Pain (Pain Scale 1-3) 01/02/17 15:00 01/09/17 14:59 Morphine Sulfate (Morphine Sulfate) 4 mg Q3H PRN IVP Moderate Pain (Pain Scale 4-6) 01/02/17 15:00 01/09/17 14:59 Morphine Sulfate (Morphine Sulfate) 6 mg Q3H PRN IVP Severe Pain (Pain Scale 7-10) 01/02/17 15:00 01/09/17 14:59 01/05/17 05:02 Ondansetron HCl (Zofran) 4 mg Q6H PRN IVP Nausea & Vomiting 01/02/17 15:00 02/01/17 14:59 Sodium Chloride 1,000 ml @ 100 mls/hr Q10H IV 01/02/17 15:00 02/01/17 14:59 01/05/17 06:08 Vancomycin HCl (Vanco rx to dose) 1 ea DAILY PRN MISC Per rx protocol 01/02/17 07:15 02/01/17 07:14 Vancomycin HCl 1 gm/Dextrose 275 ml @ 183.708 mls/hr Q24H IVPB 01/03/17 08:00 01/08/17 07:59 01/04/17 09:17 Zolpidem Tartrate (Ambien) 5 mg HSPRN PRN ORAL Insomnia 01/04/17 15:45 01/09/17 07:14 THERESA MENENDEZ Jan 05, 2017 09:36
[2017-01-05] MEDS: Vancomycin 1gm/D5W 275ml IVPB SCH ×2 (09:37)
[2017-01-05 09:41] LABS: BASOPHILS % (AUTO) 1.2 % (0.0-2.0); EOSINOPHILS % (AUTO) 3.6 % (0.0-3.0); LYMPHOCYTES % (AUTO) 27.2 % (20.0-45.0); MEAN CORPUSCULAR HEMOGLOBIN 34.9 PG (27.0-31.0); MEAN CORPUSCULAR HGB CONC 33.7 G/DL (32.0-36.0); MEAN CORPUSCULAR VOLUME 104 FL (80-99); MEAN PLATELET VOLUME 5.9 FL (6.5-10.1); MONOCYTES % (AUTO) 9.2 % (1.0-10.0); NEUTROPHILS % (AUTO) 58.7 % (45.0-75.0); PLATELET COUNT 266 K/UL (150-450); RED BLOOD COUNT 3.51 M/UL (4.20-5.40); WHITE BLOOD COUNT 5.2 K/UL (4.8-10.8)
[2017-01-05 10:01] LABS: THYROID STIMULATING HORMONE 7.74 uIU/mL (0.300-4.500)
--- NOTE | 2017-01-05 12:40 | Progress Note ---
DATE: 01/04/2017 CARDIOLOGY PROGRESS NOTE Subjective: The patient's pain now is more localized to the left posterior rib margin. She has some cough. OBJECTIVE: Vital signs: Blood pressure is 148/95, pulse 63, respiratory rate 16, and oxygen saturation 94% to 98% on two liters. LUNGS: Few rales at the left, tender left rib margin posteriorly. HEART: Regular rhythm and rate. Normal S1 and S2. ABDOMEN: Soft. EXTREMITIES: No edema. Diagnostic data: Monitor reveals no bradycardia. Bone scan is negative. Chest x-ray reveals basilar infiltrates and small pleural effusions. Laboratory data: Natriuretic peptide yesterday was 104. TSH was 4.6. IMPRESSION: 1. Pneumonia. 2. Sinus bradycardia, resolved. 3. Sinus arrhythmia. 4. Possible hypothyroidism with mild elevation of TSH noted. 5. Cocaine abuse. PLAN: 1. Continue antibiotics and respiratory hygiene. 2. Consider further cardiac imaging studies to evaluate pericardium. 3. Counseled regarding the risks of cocaine use including sudden cardiac . Israel Quijano M.D. DR: Kamilla JOB#: [id number] CC:
--- NOTE | 2017-01-05 12:40 | Progress Note ---
DATE: 01/03/2017 CARDIOLOGY PROGRESS NOTE Late entry 01/03/2017. Subjective: The patient has less abdominal pain. She denies shortness of breath. Monitored rhythm, sinus arrhythmia. Sinus bradycardia has recovered. OBJECTIVE: Vital signs: Blood pressure is 109/74, pulse rate 66, and respiratory rate 20. NECK: Supple. LUNGS: With few rhonchi. CARDIAC: Regular rhythm and rate. Normal S1 and S2. ABDOMEN: Soft. EXTREMITIES: No edema. ASSESSMENT AND PLAN: 1. Antibiotics. 2. Respiratory hygiene. 3. Avoid beta-blockers or diltiazem. 4. Monitor clinical parameters. Israel Quijano M.D. DR: Kamilla JOB#: [id number] CC:
--- NOTE | 2017-01-05 16:34 | General Progress Note ---
Assessment/Plan Assessment/Plan Assessment - L costal margin pain with negative radiology w/u - cocaine use - HTN - PNA Recommendations - f/u symptoms and exam - pain control - patient declined EGD/Colon - outpt f/u Subjective Allergies: Coded Allergies: No Known Allergies (Unverified , 05/25/14) Subjective Feels OK no new complaints tolerating PO Objective Last 24 Hour Vital Signs Date Time Temp Pulse Resp B/P (MAP) Pulse Ox O2 Delivery O2 Flow Rate FiO2 01/05/17 12:09 144/78 01/05/17 12:07 97.2 76 20 153/94 96 Nasal Cannula 2.0 01/05/17 12:00 66 01/05/17 11:41 72 16 Nasal Cannula 2.0 28 01/05/17 11:37 97.3 01/05/17 11:30 64 16 98 Nasal Cannula 2.0 28 01/05/17 11:27 170/98 01/05/17 09:00 59 01/05/17 08:45 138/89 01/05/17 08:34 97.3 75 18 159/93 95 Nasal Cannula 2.0 01/05/17 07:59 73 16 99 Nasal Cannula 2.0 28 01/05/17 07:55 Nasal Cannula 2.0 28 01/05/17 07:49 69 16 96 Nasal Cannula 2.0 28 01/05/17 07:48 96 Nasal Cannula 2.0 28 01/05/17 04:00 64 01/05/17 04:00 97.0 65 16 157/75 98 Nasal Cannula 2.0 28 01/05/17 03:50 60 16 98 Nasal Cannula 2.0 28 01/05/17 03:48 56 16 97 Nasal Cannula 2.0 28 01/05/17 02:20 97.0 62 20 146/90 95 Room Air 01/05/17 00:00 97.0 62 20 160/99 95 Room Air 01/04/17 23:45 72 16 99 Nasal Cannula 2.0 28 01/04/17 23:30 71 16 98 Nasal Cannula 2.0 28 01/04/17 20:00 66 01/04/17 20:00 97.9 63 16 148/95 94 Nasal Cannula 2.0 28 01/04/17 19:45 78 16 98 Nasal Cannula 2.0 28 01/04/17 19:30 Nasal Cannula 2.0 28 01/04/17 19:30 96 Nasal Cannula 2.0 28 01/04/17 19:30 70 16 97 Nasal Cannula 2.0 28 01/04/17 16:39 97.2 73 18 140/89 100 Nasal Cannula 2.0 Intake and Output 01/05/17 01/06/17 19:00 07:00 Intake Total 480 ml Output Total 250 ml Balance 230 ml Intake Oral 480 ml Output Urine Total 250 ml # Voids 4 Laboratory Tests 01/05/17 07:10: Thyroid Stimulating Hormone (TSH) 7.740H, Free Thyroxine 0.79L, Triiodothyronine (T3) Uptake [Pending], Vancomycin Level Trough 6.2 01/05/17 07:15: White Blood Count 5.2, Red Blood Count 3.51L, Hemoglobin 12.2, Hematocrit 36.3L , Mean Corpuscular Volume 104H, Mean Corpuscular Hemoglobin 34.9H, Mean Corpuscular Hemoglobin Concent 33.7, Red Cell Distribution Width 12.0, Platelet Count 266, Mean Platelet Volume 5.9L, Neutrophils (%) (Auto) 58.7, Lymphocytes ( %) (Auto) 27.2, Monocytes (%) (Auto) 9.2, Eosinophils (%) (Auto) 3.6H, Basophils (%) (Auto) 1.2 Height (Feet): 5 Height (Inches): 6.00 Weight (Pounds): 140 Objective WDWN AA woman NCAT supple CTA RRR Soft NT ND no edema non focal AMANDA HARRINGTON Jan 05, 2017 16:34
[2017-01-05] MEDS ORDERED: Vancomycin 750mg/NS 250ml IVPB SCH (22:00)
--- NOTE | 2017-01-06 05:30 | Progress Note ---
DATE: 01/05/2017 CARDIOLOGY PROGRESS NOTE Subjective: The patient has minimal abdominal pain. She denies shortness of breath, dizziness, or chest pain. OBJECTIVE: Vital Signs: Revealed blood pressure 146/90, heart rate 56 to 69, respiratory rate 18, and afebrile. NECK: Supple. LUNGS: Clear. CARDIAC: Regular. Normal S1 and S2 with a fourth heart sound. ABDOMEN: Soft with no focal tenderness, guarding, or rebound. EXTREMITIES: Without edema. IMPRESSION: 1. Recovering pneumonia. 2. Resolving abdominal pain. 3. Hypertension with hypertensive heart disease and suboptimal, but improving blood pressure control. 4. Sinus bradycardia likely due to underlying sinus node disease and exacerbated by increased vagal tone due to abdominal pain now resolved. PLAN: 1. Okay to discharge from cardiovascular standpoint on current medication. 2. Outpatient blood pressure monitoring should follow with titration of blood pressure medications if needed. Israel Quijano M.D. DR: ROM JOB#: [id number] CC:
--- NOTE | 2017-01-06 13:56 | Discharge Summary ---
Discharge Summary Hospital Course Date of Admission Jan 02, 2017 at 01:58 Date of Discharge Jan 05, 2017 at 15:00 Admitting Diagnosis acute abdominal pain HPI Cara Davis is a 71 year old female who was admitted on Jan 02, 2017 at 01: 58 for Acute Abdominal Pain Hospital Course [id number] Discharge Discharge Disposition Patient was discharged to Home with Home Health(06) Discharge Diagnoses: Kellie Gleason NP Jan 06, 2017 13:56
--- NOTE | 2017-01-07 08:31 | Discharge Summary 2 SIG ---
DATE OF ADMISSION: 01/02/2017 DATE OF DISCHARGE: 01/05/2017 CONSULTANTS: 1. Veena Turpin M.D. 2. Israel Quijano M.D. Brief Hospital Course: The patient is a 71-year-old female, who presented to emergency room complaining of abdominal pain and vomiting. On evaluation at ED, laboratories showed leukocytosis WBC elevated to 17, and CAT scan of the abdomen and pelvis showed diverticulosis without diverticulitis with presence of hernia, but no bowel obstruction. There was a left lower lobe consolidation that was noted. Chest x-ray done showed left lung infiltrate and possible effusion. She was started on IV antibiotics. Urine toxicology was positive for cocaine. She had episodes of bradycardia, heart rate in the 40s, and blood pressure was elevated to 170/70. Bradyarrhythmia was likely precipitated by underlying sinus disease, exacerbated by increased vagal tone due to abdominal pain. She was given IV hydration and antiplatelet therapy. Avoid calcium and beta-blockers secondary to cocaine use, and the patient was made aware of the increased risk of sudden cardiac with the use of cocaine, especially in the setting of atherosclerosis and hypertension. She was given respiratory care. The patient was offered colonoscopy, however, declined. She does not want to undergo preventive exam and was advised risk of malignancy being missed. She was given supportive care. Bone scan done was negative. She was eventually discharged home. FINAL DIAGNOSES: 1. Community-acquired pneumonia. 2. Abdominal pain, questionable lower rib pain. 3. Hypertensive urgency. 4. Bradyarrhythmia secondary to underlying sinus node disease and exacerbated with increased vagal tone due to abdominal pain. 5. Cocaine abuse. DISPOSITION: The patient was discharged home with home health. DISCHARGE MEDICATIONS: Refer to medication list. Aakash Ramirez M.D. I have been assigned to dictate discharge summary on this account and I was not involved in the patient's management. Kellie Gleason N.P. DR: GUMARO JOB#: [id number] CC: DARSHANA
[2017-01-08] MEDS ORDERED: CEFUROXIME500 MG PO (10:15)
[2017-01-08] MEDS ORDERED: LOSARTAN POTASS50 MG ORAL (10:15)
== END 2017-01-05 15:00 | disposition home health service (06) | DRG 193 ==
LOC: EDBD 00:29 → EMR 00:41 → ENRESERV 01:35 → EDBEDREQ 01:49 → 2E 01:58 → EDBEDREQ 04:32
DX: J18.9 Pneumonia, unspecified organism (principal); N17.0 Acute kidney failure with tubular necrosis; I16.0 Hypertensive urgency; I12.9 Hypertensive chronic kidney disease with stage 1 through stage 4 chronic kidney disease, or unspecified chronic kidney disease; N18.9 Chronic kidney disease, unspecified; I49.5 Sick sinus syndrome; R10.9 Unspecified abdominal pain; R07.81 Pleurodynia; R00.1 Bradycardia, unspecified; M54.30 Sciatica, unspecified side; F14.129 Cocaine abuse with intoxication, unspecified; G89.29 Other chronic pain
CPT/HCPCS: 36415; 71010; 71020; 74177; 78315; 80048; 80053; 80202; 80300; 82550; 82553; 83690; 83880; 84439; 84443; 84480; 84484; 85025; 85610; 85730; 87040; 93005; 94640; 94664; 94760; 99285; J2765; J7620

== ENCOUNTER 2017-01-08 10:16 | Emergency (ER) | payer MEDICARE ==
[~2017-01-08] VITALS: Ht 167.6 cm; Wt 61.2 kg
[~2017-01-08 10:16] MED LIST changes: +CEFUROXIME500 MG PO; +LOSARTAN POTASS50 MG ORAL
--- NOTE | 2017-01-08 10:35 | Emergency Room Report ---
History of Present Illness General Chief Complaint: Generalized Weakness Source: Patient Present Illness HPI 71-year-old female, history of hypertension, cocaine use, recent discharge from the hospital yesterday for left-sided pneumonia, presenting with left-sided chest pain. Constant, dull, occurs at rest and on exertion. Denies palpitations. Patient states that chest pain was similar to when she had a left -sided pain when she was admitted. Patient states that she has had improvement of cough, however does continue to have mild shortness of breath. Denies any fever or chills. She states that she has been compliant with her antibiotics Denies known recent stress test, denies any history of cardiac cath. Allergies: Coded Allergies: No Known Allergies (Unverified , 05/25/14) Patient History Past Medical History: see triage record Past Surgical History: none Pertinent Family History: none Reviewed Nursing Documentation: PMH: Agreed, PSxH: Agreed Nursing Documentation-PM Past Medical History: No History, Except For Hx Hypertension: Yes Hx Cancer: No Hx Gastrointestinal Problems: No Hx Neurological Problems: No Review of Systems All Other Systems: negative except mentioned in HPI Physical Exam Vital Signs Date Time Temp Pulse Resp B/P (MAP) Pulse Ox O2 Delivery O2 Flow Rate FiO2 01/08/17 10:11 97.0 60 16 157/92 96 Room Air Sp02 EP Interpretation: reviewed, normal General Appearance: normal inspection, well appearing, no apparent distress, alert, GCS 15, non-toxic Head: normocephalic, atraumatic Eyes: bilateral eye normal inspection, bilateral eye PERRL, bilateral eye EOMI ENT: normal ENT inspection, normal pharynx, normal voice, moist mucus membranes Neck: normal inspection, full range of motion, supple Respiratory: normal inspection, lungs clear, normal breath sounds, no respiratory distress, no retraction, no wheezing, speaking full sentences, chest symmetrical Cardiovascular #1: normal inspection, regular rate, rhythm, no edema, normal capillary refill Cardiovascular #2: 2+ radial (R), 2+ radial (L) Gastrointestinal: normal inspection, non tender, soft, non-distended, no guarding Musculoskeletal: normal inspection, back normal, normal range of motion, non- tender Neurologic: normal inspection, alert, oriented x3, responsive, motor strength/ tone normal, sensory intact, normal gait, speech normal Psychiatric: normal inspection, judgement/insight normal, memory normal Skin: normal inspection, normal color, no rash, warm/dry, well hydrated, normal turgor Medical Decision Making Diagnostic Impression: Primary Impression: Chest pain in adult Additional Impression: Pneumonia ER Course 71-year-old female with chest pain, recent discharge from the hospital for pneumonia, p/w Left-sided chest pain similar to aching chest pain that she has been having with her pneumonia DDX: ACS vs. CHF vs. pneumonia vs. gastritis/GERD vs. pneumothorax Plan: IV access, obtain labs including troponin, EKG, CXR ASA ER course: Labs: troponin negative Patient continues to be a stable at that site, laughing and conversing with her daughters. Ambulating to and from the bed to the bathroom without any difficulty. Has been chest pain-free. Vital signs within normal Disposition: Patient is discharged to home, patient instructed to followup with her doctor within 5 days. Patient also instructed to finish her course of antibiotics Strict precautions discussed with patient on when to emergently return to the ED : this includes worsening/severe chest pain, palpitations, shortness of breath, syncopal episodes, fever or chills, which may indicate severe illness. Patient verbalized understanding. Patient instructed to follow up with their PMD within the next 2 days. *Patient also instructed to follow up with a metal precision machine assembler within 2 days for possible outpatient stress test. Patient agrees with plan. Please note that this Emergency Department Report was dictated using anydooRlaboratory inspector technology software, occasionally this can lead to erroneous entry secondary to interpretation by the dictation equipment. Laboratory Tests Test 01/08/17 10:35 01/08/17 11:10 White Blood Count 5.8 K/UL (4.8-10.8) Red Blood Count 4.05 M/UL (4.20-5.40) L Hemoglobin 13.2 G/DL (12.0-16.0) Hematocrit 40.7 % (37.0-47.0) Mean Corpuscular Volume 101 FL (80-99) H Mean Corpuscular Hemoglobin 32.6 PG (27.0-31.0) H Mean Corpuscular Hemoglobin Concent 32.4 G/DL (32.0-36.0) Red Cell Distribution Width 11.6 % (11.6-14.8) Platelet Count 374 K/UL (150-450) Mean Platelet Volume 5.8 FL (6.5-10.1) L Neutrophils (%) (Auto) 53.1 % (45.0-75.0) Lymphocytes (%) (Auto) 26.9 % (20.0-45.0) Monocytes (%) (Auto) 13.2 % (1.0-10.0) H Eosinophils (%) (Auto) 5.3 % (0.0-3.0) H Basophils (%) (Auto) 1.5 % (0.0-2.0) Sodium Level 142 mEQ/L (135-145) Potassium Level 4.4 mEQ/L (3.4-4.9) Chloride Level 105 mEQ/L (98-107) Carbon Dioxide Level 26 mEQ/L (20-30) Anion Gap 11 (5-15) Blood Urea Nitrogen 15 mg/dL (7-23) Creatinine 1.0 mg/dL (0.5-0.9) H Estimate Glomerular Filtration Rate > 60 mL/min (>60) Glucose Level 80 mg/dL (74-106) Calcium Level 9.6 mg/dL (8.6-10.2) Total Bilirubin < 0.2 mg/dL (0.0-1.2) Aspartate Amino Transferase (AST) 30 U/L (5-40) Alanine Aminotransferase (ALT) 39 U/L (3-33) H Alkaline Phosphatase 69 U/L (35-104) Total Creatine Kinase 69 U/L (26-140) Creatine Kinase MB 2.3 ng/mL (< 3.8) Creatine Kinase MB Relative Index 3.3 Troponin I < 0.30 ng/mL (<=0.30) Pro-B-Type Natriuretic Peptide 71 pg/mL (0-125) Total Protein 6.9 g/dL (6.6-8.7) Albumin 4.0 g/dL (3.5-5.2) Globulin 2.9 g/dL Albumin/Globulin Ratio 1.3 (1.0-2.7) Urine Color Pale yellow Urine Appearance Clear Urine pH 5 (4.5-8.0) Urine Specific [place] 1.020 (1.005-1.035) Urine Protein Negative (NEGATIVE) Urine Glucose (UA) Negative (NEGATIVE) Urine Ketones Negative (NEGATIVE) Urine Occult Blood 1+ (NEGATIVE) H Urine Nitrite Negative (NEGATIVE) Urine Bilirubin Negative (NEGATIVE) Urine Urobilinogen Normal MG/DL (0.0-1.0) Urine Leukocyte Esterase 2+ (NEGATIVE) H Urine RBC 2-4 /HPF (0 - 2) H Urine WBC 0-2 /HPF (0 - 2) Urine Squamous Epithelial Cells Occasional /LPF Urine Bacteria Occasional /HPF (NONE) EKG Diagnostic Results Rate: bradycardiac Rhythm: NSR ST Segments: no acute changes Rhythm Strip Diag. Results EP Interpretation: yes Rate: 59 Rhythm: NSR, no PVC's, no ectopy Chest X-Ray Diagnostic Results Chest X-Ray Diagnostic Results : Chest X-Ray Ordered: Yes # of Views/Limited/Complete: 1 View Indication: Chest Pain EP Interpretation: Yes Interpretation: other - L basilar atelectasis Impression: Other - L basilar atelectasis Electronically Signed by: Electronically signed by Noris Flores MD Last Vital Signs Date Time Temp Pulse Resp B/P (MAP) Pulse Ox O2 Delivery O2 Flow Rate FiO2 01/08/17 10:11 97.0 60 16 157/92 96 Room Air Disposition: HOME, SELF-CARE Condition: Improved Noris Flores M.D. Jan 08, 2017 10:35
[2017-01-08 11:00] LABS: BASOPHILS % (AUTO) 1.5 % (0.0-2.0); EOSINOPHILS % (AUTO) 5.3 % (0.0-3.0); LYMPHOCYTES % (AUTO) 26.9 % (20.0-45.0); MEAN CORPUSCULAR HEMOGLOBIN 32.6 PG (27.0-31.0); MEAN CORPUSCULAR HGB CONC 32.4 G/DL (32.0-36.0); MEAN CORPUSCULAR VOLUME 101 FL (80-99); MEAN PLATELET VOLUME 5.8 FL (6.5-10.1); MONOCYTES % (AUTO) 13.2 % (1.0-10.0); NEUTROPHILS % (AUTO) 53.1 % (45.0-75.0); PLATELET COUNT 374 K/UL (150-450); RED BLOOD COUNT 4.05 M/UL (4.20-5.40); RED CELL DISTRIBUTION WIDTH 11.6 % (11.6-14.8); WHITE BLOOD COUNT 5.8 K/UL (4.8-10.8)
[2017-01-08 11:18] LABS: APPEARANCE,URINE CLEAR; KETONES,URINE NEGATIVE (NEGATIVE); LEUKOCYTE ESTERASE ,URINE 2+ (NEGATIVE); NITRITE,URINE NEGATIVE (NEGATIVE); PH,URINE 5 (4.5-8.0); PROTEIN,URINE NEGATIVE (NEGATIVE); UROBILINOGEN,URINE NORMAL MG/DL (0.0-1.0)
--- NOTE | 2017-01-08 11:20 | Diagnostic Imaging Report ---
Indication: Dyspnea Comparison: 01/04/17 A single view chest radiograph was obtained. Findings: Minimal platelike atelectasis demonstrated at the left lung base, improved since the prior study. Heart is normal in size. The bones are osteopenic. Impression: Minimal left basal atelectasis.
[2017-01-08 11:23] LABS: BACTERIA,URINE OCCASIONAL /HPF; SQUAMOUS EPITHELIAL CELL,UR OCCASIONAL /LPF (NONE/OCC); WBC,URINE 0-2 /HPF (0 - 2)
[2017-01-08 11:26] LABS: ALANINE AMINOTRANSFERASE 39 U/L (3-33); ALBUMIN/GLOBULIN RATIO 1.3 (1.0-2.7); ANION GAP 11 (5-15); ASPARTATE AMINO TRANSFERASE 30 U/L (5-40); CALCIUM 9.6 mg/dL (8.6-10.2); CARBON DIOXIDE 26 mEQ/L (20-30); CHLORIDE 105 mEQ/L (98-107); GLOMERULAR FILTRATION RATE > 60 mL/min (>60); HEMOLYSIS 5; POTASSIUM 4.4 mEQ/L (3.4-4.9); SODIUM 142 mEQ/L (135-145); TOTAL PROTEIN 6.9 g/dL (6.6-8.7); TROPONIN I < 0.30 ng/mL (<=0.30)
[2017-01-08 11:37] LABS: CKMB 2.3 ng/mL (< 3.8)
[2017-01-08 12:25] VITALS: BP 166/114
[2017-01-08 12:41] VITALS: BP 166/104
--- NOTE | 2017-01-10 19:10 | Cardiology Report ---
APPROVED REPORT EKG Measurement Heart [id number] Sinus bradycardia with 1st degree AV block Possible Left atrial enlargement Low voltage QRS Cannot rule out Anterior infarct, age undetermined Abnormal ECG
== END 2017-01-08 13:01 | disposition home or self-care (01) ==
LOC: EDBD 10:16 → EMR 11:53
DX: R07.9 Chest pain, unspecified (principal); J18.9 Pneumonia, unspecified organism; I10 Essential (primary) hypertension; R00.1 Bradycardia, unspecified; M85.80 Other specified disorders of bone density and structure, unspecified site
CPT/HCPCS: 36415; 71010; 80053; 81003; 82550; 82553; 83880; 84484; 85025; 93005; 99283

== ENCOUNTER 2017-01-16 07:08 | Emergency (ER) | payer MEDICARE ==
[~2017-01-16] VITALS: Ht 167.6 cm; Wt 61.2 kg
--- NOTE | 2017-01-16 07:11 | Emergency Room Report ---
History of Present Illness General Chief Complaint: Back Pain-No Injury Source: Patient Present Illness HPI The patient is a 71-year-old female who presented after increased right-sided flank pain the patient prior history of substance abuse and stated that she last used cocaine last night.Patient had not been having any fever. She not been vomiting. The patient had recently been hospitalized after pneumonia. The patient had increased pain to the right flank this was not relieved by rest. She had reported injury to her ankle as well after falling Allergies: Coded Allergies: No Known Allergies (Unverified , 05/25/14) Patient History Past Medical History: see triage record Reviewed Nursing Documentation: PMH: Agreed, PSxH: Agreed Review of Systems All Other Systems: negative except mentioned in HPI Physical Exam Sp02 EP Interpretation: reviewed, normal General Appearance: normal inspection, well appearing, no apparent distress, alert, GCS 15, mild distress Head: atraumatic ENT: normal ENT inspection, hearing grossly normal, normal voice Neck: normal inspection, full range of motion, supple, no bony tend Respiratory: normal inspection, lungs clear, normal breath sounds, no respiratory distress, no retraction, no wheezing Cardiovascular #1: regular rate, rhythm, no edema Gastrointestinal: normal inspection, normal bowel sounds, non tender, soft, no guarding, no hernia Genitourinary: no CVA tenderness Musculoskeletal: normal inspection, back normal, normal range of motion Neurologic: normal inspection, alert, responsive, speech normal Psychiatric: normal inspection, judgement/insight normal, mood/affect normal Skin: normal inspection, normal color, no rash Medical Decision Making Diagnostic Impression: Primary Impression: Back pain Additional Impression: Substance abuse ER Course Patient presented for back pain. Differential diagnosis included but was not limited to herniated disc, cauda equina syndrome, abdominal aortic aneurysm, perforated ulcer, spinal epidural abscess, spinal stenosis, lumbar fracture, metastatic lesion, pyelonephritis. Because of complexity of patient's case laboratory testing and imaging studies were ordered.Laboratory studies were unremarkable. Patient was noted to have a recent use of cocaine. The patient was improved after medications including IV Ativan.The patient was not given any prescription for pain medications due to recent history substance abuse. The patient was advised followup with her primary care physician for further pain medications as needed. Labs Test 01/16/17 07:45 White Blood Count 9.3 K/UL (4.8-10.8) Red Blood Count 4.10 M/UL (4.20-5.40) Hemoglobin 13.7 G/DL (12.0-16.0) Hematocrit 41.1 % (37.0-47.0) Mean Corpuscular Volume 100 FL (80-99) Mean Corpuscular Hemoglobin 33.5 PG (27.0-31.0) Mean Corpuscular Hemoglobin Concent 33.4 G/DL (32.0-36.0) Red Cell Distribution Width 11.6 % (11.6-14.8) Platelet Count 376 K/UL (150-450) Mean Platelet Volume 6.1 FL (6.5-10.1) Neutrophils (%) (Auto) 68.0 % (45.0-75.0) Lymphocytes (%) (Auto) 19.6 % (20.0-45.0) Monocytes (%) (Auto) 8.1 % (1.0-10.0) Eosinophils (%) (Auto) 2.5 % (0.0-3.0) Basophils (%) (Auto) 1.8 % (0.0-2.0) Prothrombin Time 10.2 SEC (9.30-11.50) Prothromb Time International Ratio 1.0 (0.9-1.1) Activated Partial Thromboplast Time 35 SEC (23-33) Sodium Level 139 mEQ/L (135-145) Potassium Level 4.2 mEQ/L (3.4-4.9) Chloride Level 100 mEQ/L (98-107) Carbon Dioxide Level 24 mEQ/L (20-30) Anion Gap 15 (5-15) Blood Urea Nitrogen 11 mg/dL (7-23) Creatinine 1.0 mg/dL (0.5-0.9) Estimat Glomerular Filtration Rate > 60 mL/min (>60) Glucose Level 88 mg/dL (74-106) Lactic Acid Level 0.90 mmol/L (0.66-2.22) Calcium Level 9.5 mg/dL (8.6-10.2) Total Bilirubin 0.6 mg/dL (0.0-1.2) Aspartate Amino Transf (AST/SGOT) 25 U/L (5-40) Alanine Aminotransferase (ALT/SGPT) 34 U/L (3-33) Alkaline Phosphatase 62 U/L (35-104) Troponin I < 0.30 ng/mL (<=0.30) Total Protein 7.5 g/dL (6.6-8.7) Albumin 4.6 g/dL (3.5-5.2) Globulin 2.9 g/dL Albumin/Globulin Ratio 1.5 (1.0-2.7) Lipase 26 U/L (< 60) EKG Diagnostic Results Rate: normal Rhythm: NSR ST Segments: no acute changes Status: improved Disposition: HOME, SELF-CARE Condition: Stable Alex Harrison Jan 16, 2017 07:11
[2017-01-16] MEDS ORDERED: LORazepam Inj 2mg/ml 1ml IV ONE (07:15)
[2017-01-16] MEDS ORDERED: Famotidine 20 MG/ 2ML VIAL IVP ONE (07:15)
[2017-01-16] MEDS ORDERED: Morphine Sulfate 4mg/ml Inj IVP ONE (07:30)
[2017-01-16 07:54] LABS: BASOPHILS % (AUTO) 1.8 % (0.0-2.0); EOSINOPHILS % (AUTO) 2.5 % (0.0-3.0); LYMPHOCYTES % (AUTO) 19.6 % (20.0-45.0); MEAN CORPUSCULAR HEMOGLOBIN 33.5 PG (27.0-31.0); MEAN CORPUSCULAR HGB CONC 33.4 G/DL (32.0-36.0); MEAN CORPUSCULAR VOLUME 100 FL (80-99); MEAN PLATELET VOLUME 6.1 FL (6.5-10.1); MONOCYTES % (AUTO) 8.1 % (1.0-10.0); PLATELET COUNT 376 K/UL (150-450); RED CELL DISTRIBUTION WIDTH 11.6 % (11.6-14.8); WHITE BLOOD COUNT 9.3 K/UL (4.8-10.8)
[2017-01-16 08:00] VITALS: BP 133/86
[2017-01-16 08:02] LABS: PROTHROMBIN TIME 10.2 SEC (9.30-11.50)
[2017-01-16 08:08] LABS: ALANINE AMINOTRANSFERASE 34 U/L (3-33); ALBUMIN/GLOBULIN RATIO 1.5 (1.0-2.7); ANION GAP 15 (5-15); ASPARTATE AMINO TRANSFERASE 25 U/L (5-40); CALCIUM 9.5 mg/dL (8.6-10.2); CARBON DIOXIDE 24 mEQ/L (20-30); CHLORIDE 100 mEQ/L (98-107); GLOMERULAR FILTRATION RATE > 60 mL/min (>60); HEMOLYSIS 16; LIPASE 26 U/L (< 60); POTASSIUM 4.2 mEQ/L (3.4-4.9); SODIUM 139 mEQ/L (135-145); TOTAL PROTEIN 7.5 g/dL (6.6-8.7); TROPONIN I < 0.30 ng/mL (<=0.30)
[2017-01-16 08:37] LABS: APPEARANCE,URINE CLEAR; KETONES,URINE NEGATIVE (NEGATIVE); LEUKOCYTE ESTERASE ,URINE 1+ (NEGATIVE); NITRITE,URINE NEGATIVE (NEGATIVE); PH,URINE 5 (4.5-8.0); PROTEIN,URINE NEGATIVE (NEGATIVE); UROBILINOGEN,URINE NORMAL MG/DL (0.0-1.0)
[2017-01-16 08:45] LABS: BACTERIA,URINE FEW /HPF; SQUAMOUS EPITHELIAL CELL,UR FEW /LPF (NONE/OCC); WBC,URINE 0-2 /HPF (0 - 2)
--- NOTE | 2017-01-16 09:09 | Diagnostic Imaging Report ---
Indication: Shortness of breath Technique: XRAY CHEST 1 V Comparison: None 1617 Findings: Cardiomediastinal silhouette is stable. There is no consolidation, pneumothorax or pleural effusion. Osseous structures are stable. Impression: No acute cardiopulmonary disease.
[2017-01-16 10:00] VITALS: BP 130/75
== END 2017-01-16 10:00 | disposition home or self-care (01) ==
LOC: EDBD 07:08 → EMR 07:15
DX: M54.9 Dorsalgia, unspecified (principal); F14.10 Cocaine abuse, uncomplicated; R06.02 Shortness of breath
CPT/HCPCS: 36415; 71010; 80053; 81003; 83605; 83690; 84484; 85025; 85610; 85730; 87040; 93005; 96374; 96375; 99284; J2270; S0028

== ENCOUNTER 2018-01-06 20:56 | Emergency (ER) | payer MEDICARE ==
[~2018-01-06] VITALS: Ht 167.6 cm; Wt 65.8 kg
--- NOTE | 2018-01-06 21:13 | Emergency Room Report ---
History of Present Illness General Chief Complaint: Pain Source: Patient Present Illness [facility] This is a 72-year-old female with history of high blood pressure. She presents with chief point of left leg pain. This. On chronic problem but worse tonight. Worse with movement. No trauma. No fever chills but denies any fever chills. Pain is 9 out of 10. No injury. No swelling. Allergies: Coded Allergies: No Known Allergies (Unverified , 05/25/14) Patient History Past Medical History: see triage record, old chart reviewed, HTN Past Surgical History: other Pertinent Family History: none Social History: Reports: alcohol use Now: No Immunizations: other Reviewed Nursing Documentation: PMH: Agreed; PSxH: Agreed Nursing Documentation-PMH Hx Hypertension: Yes Hx Cancer: No Hx Gastrointestinal Problems: No Hx Neurological Problems: No Review of Systems Eye: Denies: eye pain, blurred vision ENT: Denies: ear pain, nose congestion, throat swelling Respiratory: Denies: cough, shortness of breath Cardiovascular: Denies: chest pain, palpitations Gastrointestinal: Denies: abdominal pain, diarrhea, nausea, vomiting Musculoskeletal: Reports: muscle pain; Denies: back pain, joint pain Skin: Denies: rash Neurological: Denies: headache, numbness Endocrine: Denies: increased thirst, increased urine Hematologic/Lymphatic: Denies: easy bruising All Other Systems: negative except mentioned in HPI Physical Exam Vital Signs Date Time Temp Pulse Resp B/P (MAP) Pulse Ox O2 Delivery O2 Flow Rate FiO2 01/06/18 20:59 97.7 103 20 129/82 98 Room Air 97.7 vitals normal Sp02 EP Interpretation: reviewed, normal General Appearance: well appearing, no apparent distress, alert Head: normocephalic, atraumatic Eyes: bilateral eye PERRL, bilateral eye EOMI ENT: hearing grossly normal, normal pharynx Neck: full range of motion, supple, no meningismus Respiratory: chest non-tender, lungs clear, normal breath sounds Cardiovascular #1: regular rate, rhythm, no murmur Gastrointestinal: normal bowel sounds, non tender, no mass, no organomegaly, no bruit, non-distended Musculoskeletal: back normal, gait/station normal, normal range of motion, other Neurologic: alert, oriented x3 - Patient with left leg pain but moving it without any difficulty. No redness or trauma. No edema. Psychiatric: mood/affect normal Skin: warm/dry Medical Decision Making Diagnostic Impression: Primary Impression: Pain Additional Impressions: Cocaine abuse UTI (urinary tract infection) Qualified Codes: N30.00 - Acute cystitis without hematuria ER Course Patient presents with left leg pain. His been a chronic issue. She said his been ongoing for years. Symptom worse tonight. No evidence of DVT by exam. No evidence of ischemia. We will discharge home. Last Vital Signs Date Time Temp Pulse Resp B/P (MAP) Pulse Ox O2 Delivery O2 Flow Rate FiO2 01/06/18 20:59 97.7 103 20 129/82 98 Room Air 97.7 Status: improved Disposition: HOME, SELF-CARE Condition: Stable Scripts Ibuprofen* (MOTRIN*) 600 Mg Tablet 600 MG ORAL THREE TIMES A DAY, #30 TAB 0 Refills Prov: SIMBA MCCALL M.D. 01/06/18 Cephalexin* (KEFLEX*) 500 Mg Capsule 500 MG ORAL TID, #21 CAP Prov: SIMBA MCCALL M.D. 01/06/18 Additional Instructions: stop using drugs. Follow up with your doctor in 7 days. Return if worse. SIMBA MCCALL M.D. Jan 06, 2018 21:13
[2018-01-06] MEDS ORDERED: Norco 5mg/325mg tab ORAL ONE (21:15)
[2018-01-06 21:21] LABS: APPEARANCE,URINE CLEAR; BILIRUBIN, URINE NEGATIVE (NEGATIVE); COLOR,URINE PALE YELLOW; GLUCOSE, URINE (UA) NEGATIVE (NEGATIVE); KETONES,URINE NEGATIVE (NEGATIVE); LEUKOCYTE ESTERASE ,URINE 3+ (NEGATIVE); NITRITE,URINE NEGATIVE (NEGATIVE); PH,URINE 5 (4.5-8.0); PROTEIN,URINE NEGATIVE (NEGATIVE); UROBILINOGEN,URINE NORMAL MG/DL (0.0-1.0)
[2018-01-06] MEDS ORDERED: CEPHALEXIN500 MG ORAL (22:04)
[2018-01-06] MEDS ORDERED: IBUPROFEN600 MG ORAL (22:04)
[2018-01-06 22:05] VITALS: BP 122/82
== END 2018-01-06 22:05 | disposition home or self-care (01) ==
LOC: EDBD 20:56 → EDUNIT# 20:56 → EMR 21:10
DX: G89.29 Other chronic pain (principal); M79.605 Pain in left leg; I10 Essential (primary) hypertension; F14.10 Cocaine abuse, uncomplicated
CPT/HCPCS: 80307; 81003; 87086; 99284